=== PATIENT | female | born 1965 | race Caucasian/White ===

== ENCOUNTER → 2016-05-16 | Outpatient (CLI) | payer BC ==
[~2016-05-16] MED LIST: EST1 PO; FLUO20CA35 PO; IBUP-1050 PO
== END | disposition home or self-care (01) ==
LOC: C.PAPS 10:26
PROVIDERS: ATTEND Obstetrics & Gynecology
DX: Z01.419 Encounter for gynecological examination (general) (routine) without abnormal findings (principal)

== ENCOUNTER → 2016-08-23 | Outpatient (CLI) | payer BC ==
--- NOTE | 2016-08-23 16:20 | MAMMOGRAPHY REPORT ---
BILATERAL DIGITAL SCREENING MAMMOGRAM TOMOSYNTHESIS WITH CAD: 08/23/2016 CLINICAL HISTORY: Routine screening. Patient has no complaints. TECHNIQUE: Breast tomosynthesis in addition to standard 2D mammography was performed. Current study was also evaluated with a Computer Aided Detection (CAD) system. COMPARISON: Comparison is made to exams dated: 08/19/2015 mammogram, 08/17/2014 mammogram, 07/02/2013 ma mmogram, 03/13/2012 mammogram - [facility], and 08/19/2008. BREAST COMPOSITION: There are scattered areas of fibroglandular density in both breasts. FINDINGS: No suspicious spiculated or irregular mass, architectural distortion or cluster of new, sheriff spicious microcalcifications is seen. There is a stable circumscribed oval 7 mm mass in the upper ou ter posterior left breast, most likely an intramammary lymph node. IMPRESSION: ACR BI-RADS CATEGORY 1: NEGATIVE There is no mammographic evidence of malignancy. A 1 year screening mammogram is recommended. The pa tient will receive written notification of the results. Approximately 10% of breast cancers are not detected with mammography. A negative mammographic report should not delay biopsy if a clinically suggestive mass is present. Conchita Petty M.D. ay/:08/23/2016 13:50:19 Electronic Gluer: Fabiola TY)(Catherine)(BD), [facility] letter sent: Normal 1/2 BI-RADS Code: ACR BI-RADS Category 1: Negative
== END | disposition home or self-care (01) ==
LOC: C.MAMM 08:30
PROVIDERS: ATTEND Obstetrics & Gynecology
DX: Z12.31 Encounter for screening mammogram for malignant neoplasm of breast (principal)

== ENCOUNTER → 2016-12-31 | Outpatient (CLI) | payer BC ==
--- NOTE | 2016-12-31 14:15 | DIAGNOSTIC IMAGING REPORT ---
R KNEE 4 OR MORE CLINICAL HISTORY: RIGHT KNEE PAIN COMPARISON: None. DISCUSSION: There is a suprapatellar joint effusion. No acute fractures or dislocations are visualized. There are no erosive or destructive changes. IMPRESSION: Joint effusion. No fractures identified. Electronically signed by: Clinton Fontaine M.D. 12/31/2016 2:14 PM Dictated Date/Time: 12/31/2016 2:13 PM
== END | disposition home or self-care (01) ==
LOC: C.RDSM 09:49
PROVIDERS: ATTEND Family Medicine
DX: M25.561 Pain in right knee (principal); M25.461 Effusion, right knee

== ENCOUNTER → 2017-01-07 | Outpatient (CLI) | payer BC ==
--- NOTE | 2017-01-07 16:12 | DIAGNOSTIC IMAGING REPORT ---
MRI THE RIGHT KNEE NO CONTRAST CLINICAL HISTORY: RIGHT KNEE PAIN, KNEE INJURY, MENISCUS TEAR COMPARISON STUDY: Conventional radiographic study dated 12/31/2016 FINDINGS: Imaging was performed in sagittal, coronal, and axial planes. There is a moderate suprapatellar joint effusion. There are no areas of marrow edema to indicate occult fracture or bone bruise. The quadriceps and patellar tendons appear intact. The anterior and posterior cruciate ligaments appear intact. The medial and lateral collateral ligaments appear intact. No tears a lateral meniscus are visualized. Although not well visualized on sagittal images, coronal images suggest the presence of a small bucket-handle tear of the medial meniscus.. The patellar retinacular structures appear intact. IMPRESSION: 1. Moderate suprapatellar joint effusion 2. Probable bucket-handle tear of the medial meniscus Electronically signed by: Clinton Fontaine M.D. 01/07/2017 4:11 PM Dictated Date/Time: 01/07/2017 4:05 PM
== END | disposition home or self-care (01) ==
LOC: C.MRIBC 14:50
PROVIDERS: ATTEND Family Medicine
DX: M25.561 Pain in right knee (principal); M25.461 Effusion, right knee

== ENCOUNTER → 2017-01-08 | Outpatient (CLI) | payer BC | END | disposition home or self-care (01) | LOC: C.RDSM 08:46 | PROVIDERS: ATTEND Orthopaedic Surgery | DX: M79.604 Pain in right leg (principal) ==

== ENCOUNTER → 2017-01-08 | Outpatient (CLI) | payer BC ==
[2017-01-08 12:12] LABS: SYNOVIAL FLUID APPEARANCE CLOUDY; SYNOVIAL FLUID COLOR YELLOW; SYNOVIAL FLUID MONONUC RELAT 96.2 %; SYNOVIAL FLUID POLYNUC RELAT 3.8 %
== END | disposition home or self-care (01) ==
LOC: C.LABSPEC 10:56
PROVIDERS: ATTEND Orthopaedic Surgery
DX: M25.461 Effusion, right knee (principal); E88.89 Other specified metabolic disorders

== ENCOUNTER → 2017-01-31 | Outpatient (CLI) | payer BC ==
[~2017-01-31] MED LIST changes: -FLUO20CA35 PO; +FLUO40CA8 PO; -IBUP-1050 PO; +MULT-506 PO
[2017-01-31 10:58] LABS: HEMATOCRIT 40.7 % (37-47); MEAN CELL VOLUME 88.9 fL (80-100); MEAN CORPUSCULAR HEMOGLOBIN 30.6 pg (25-34); MEAN CORPUSCULAR HGB CONC 34.4 g/dl (32-36); MEAN PLATELET VOLUME 9.4 fL (7.4-10.4); PLATELET COUNT 216 K/uL (130-400); RED BLOOD COUNT 4.58 M/uL (4.2-5.4); WHITE BLOOD COUNT 4.67 K/uL (4.8-10.8)
[2017-01-31 11:25] LABS: BLOOD UREA NITROGEN 14 mg/dl (7-18); BUN/CREATININE RATIO 20.2 (10-20); CALCIUM 8.8 mg/dl (8.5-10.1); CARBON DIOXIDE 27 mmol/L (21-32); CHLORIDE 105 mmol/L (98-107); CREATININE 0.71 mg/dl (0.60-1.20); GLUCOSE 93 mg/dl (70-99); POTASSIUM 3.8 mmol/L (3.5-5.1); SODIUM 137 mmol/L (136-145)
== END | disposition home or self-care (01) ==
LOC: C.CPL 10:10
PROVIDERS: ATTEND Physician Assistant
DX: Z01.818 Encounter for other preprocedural examination (principal); S83.241A Other tear of medial meniscus, current injury, right knee, initial encounter; X58.XXXA Exposure to other specified factors, initial encounter

== ENCOUNTER → 2017-02-04 | Day surgery (SDC) | payer BC ==
[2017-01-30 08:42] VITALS: Ht 152.4 cm; Wt 70.9 kg
[~2017-02-04] VITALS: Ht 152.4 cm; Wt 70.9 kg
[~2017-02-04] MED LIST changes: +ATROPINE SULFATE 0.1 MG/ML 5ML SYR IV PRN; +CLINDAMYCIN PHOS 150 MG/ML 2 ML VIAL IV SCH; +DEXAMETHASONE SOD INJ 4 MG/ML VIAL ONE; +EpHEDrine SULFATE INJ 50 MG/ML AMP IV PRN; +EpINEphrine HCL INJ 1 MG/ML 5ML SYRINGE ONE; +FENTANYL CITRATE INJ 50 MCG/1 ML 2 ML VIAL ONE; +LACTATED RINGER'S 1000ML 1,000 ML IV SCH; +LIDO 2%/EPINEPHRINE 1:100000 20 ML VIAL INFIL ONE; +LIDOCAINE HCL 2% 2 ML VIAL (20MG/ML) ONE; +MIDAZOLAM HCL 1 MG/ML 2ML VIAL ONE; +NURSING VERBAL MED ORDER ONE; +ONDANSETRON INJ 2 MG/ML 2 ML VIAL IV PRN; +ONDANSETRON INJ 2 MG/ML 2 ML VIAL ONE; +OXYCODONE/ACETAMINOPHEN 5-325 TAB PO PRN; +PROPOFOL IV EMULSION 10 MG/ML 20 ML VIAL IV ONE; +ROPIVACAINE 0.5% 5 MG/ML 30 ML VIAL ONE
--- NOTE | 2017-02-04 07:34 | History & Physical Bridge - [place] ---
H&P Re-Evaluation Bridge Note: I have examined the patient, reviewed the History & Physical and in the interval since the performance of the History & Physical I have noted the following changes of clinical significance: No changes noted
--- NOTE | 2017-02-04 09:32 | [facility] Post Operative Brief Note ---
Immediate Operative Summary Operative Date Feb 04, 2017. Pre-Operative Diagnosis Right Knee Medial Meniscus Tear, Synovitis Post-Operative Diagnosis Same Procedure(s) Performed Right Knee Arthroscopy, Partial Medial Meniscectomy, Synovectomy Surgeon Dr. Madison Gum Puller Surgeon(s) Dr. Melendez Estimated Blood Loss Minimal Findings Flap tear posterior horn medial meniscus trimmed back to stable margin. Infrapatellar and Suprapatellar plicae resected. Synovitis resected anterior knee Fluids (cc crystalloids) 1000 Specimens None Drains None Anesthesia General with local Complication(s) None Disposition Recovery Room / PACU
--- NOTE | 2017-02-04 09:43 | Discharge Instructions-SurgCtr ---
Discharge Instructions Date of Service Feb 04, 2017. Visit Reason for Visit: Right Knee Medial Meniscus Tear, Synovitis Discharge Discharge Diagnosis / Problem: s/p R knee arthroscopy, partial medial meniscectomy, synovectomy Discharge Goals Goal(s): Decrease discomfort, Improve function, Increase independence Activity Recommendations Activity Limitations: per Instructions/Follow-up section Lifting Limitations: none Exercise/Sports Limitations: none May Resume Sexual Activity: after follow-up appointment Shower/Bathe: tomorrow Driving or Machine Use: Weightbearing Status: Right toe touch Anesthesia . Post Anesthesia Instructions: If you have had General Anesthesia or IV Sedation: * Do not drive today. * Resume driving when surgeon permits. * Do not make important decisions or sign legal documents today. * Call surgeon for: 1. Temperature elevations greater than 101 degrees F. 2. Uncontrollable pain. 3. Excessive bleeding. 4. Persistent nausea and vomiting. 5. Medication intolerance (nausea, vomiting or rash). * For nausea and vomiting use only clear liquids such as: tea, soda, bouillon until nausea subsides, then gradually increase diet as tolerated. * If you have any concerns or questions, call your surgeon's office. If physician is unavailable and it is an emergency, call 911 or go to the nearest emergency room. . Instructions / Follow-Up Instructions / Follow-Up Post-operative Instructions Dear Patient and Family/Friends, Before you are discharged from the hospital, it is important to know what to expect when you get home after surgery. To that end, we have created this sheet of discharge instructions which covers many commonly asked questions. Make sure you go through this sheet in its entirety with your nurse before you are discharged. Please note that we will go over the specifics of your surgery and recovery when you return for your first post-operative visit. Sincerely, Dr. Madison Pain Expect to be in a fair amount of pain after surgery. Remember, our goal is not to eliminate your pain, but to make it tolerable. It is a good idea to stay ahead of your pain by taking the medications you were prescribed once you get home. Typically, the pain starts improving 3-7 days after surgery. You should start weaning off the narcotic pain medication (oxycodone, hydrocodone, hydromorphone, morphine) as soon as your pain improves. Please call our office if your pain is not adequately controlled. Ice Ice your operative site at least 5 times a day for 15-30 minutes at a time. Make sure you have a thin cloth between the ice or cooling unit and your skin to prevent mccoy bite. This is especially important if you received a nerve block. Continue icing your operative site for the first 5-7 days after surgery , then as needed. Diet/Nausea/Vomiting Start by drinking clear liquids and eating crackers. If you can tolerate this, then you may resume your normal diet. If you feel nauseated or vomit, take Zofran/ondansetron (if prescribed). Please call our office if you have intractable nausea or vomiting, or, if after hours, you may go to the Emergency Room for help. Constipation Constipation is a common side effect of narcotic pain medication. If you have not had a bowel movement within 2 days after surgery, we recommend purchasing an over the counter laxative such as Milk of Magnesia, Dulcolax, or Miralax from a local pharmacy, and taking it as instructed. Call our clinic if any questions. Slings and Braces If you were placed in a sling or brace, it must be worn at all times, including sleep. You may remove your sling or brace for physical therapy, home exercises , and showering. The length of time you will be in your brace and range of motion restrictions depends on what surgery you had; these details will be reviewed at your first post-operative appointment. Nerve block The anesthesia team sometimes places a nerve block to help with post-operative pain control. This results in significant numbness and inability to move the extremity. The nerve block usually wears off in 8-12 hours, but sometimes can last up to 24 hours. Please call our office if you are still unable to move your extremity after 24 hours, unless you received a pain pump to take home. Nerve blocks typically wear off quickly, so start taking pain medication as soon as you start feeling soreness near your surgical site. Weight bearing and Range of Motion. Do not bear any weight through your operative extremity immediately after surgery. If you had upper extremity surgery, do not lift anything with that arm. If you are in a knee brace, keep it locked in place until your follow-up. We will discuss your weight bearing, range of motion, and lifting restrictions in detail at your first post-operative appointment. Continuous Passive Motion (CPM) Machine If you were prescribed a CPM machine, it will start after your first post- operative appointment, at which time we will give you instructions on the range of motion settings and duration of treatment Physical therapy You will be given a prescription for physical therapy or occupational therapy at your first post-operative appointment. Typically, patients start therapy within 1 week of surgery Wound care and showering We will inspect your wound at your first post-operative visit, and may do a dressing change at that time. Most patients will be in a water-proof dressing that is removed 14 days after surgery. It is normal to see some dried blood on the dressing. Do not remove your dressing, paper strips or sutures yourself unless you are given permission. Showering is allowed the day after surgery. Do not scrub or remove any dressings. The wound should not be submerged underwater (i.e. in a bathtub or pool) until 4 weeks after surgery VEGA stockings If you were given white stockings, these are to be worn at all times except to shower (on both legs) for the first 2 weeks after surgery. Driving You may not drive while taking narcotic pain medication or while in a cast, splint, sling or brace. You, the patient, need to make the final determination about when you are safe to drive, however, the earliest you may consider driving after surgery is below: Hand/Wrist/Elbow Surgery: 3 days Shoulder Surgery: 2 weeks Hip,/Knee/Ankle Surgery: 4 weeks Fracture repair: 6 weeks Return to Work Your return to work depends on what surgery was done and what type of work you do. Please bring any paperwork your employer needs completed to your first post -operative visit. Also, bring a description of your job duties, as this helps us to understand what risks you may face at work. Travel Avoid long distance travel (greater than 1 hour) in airplanes and cars for the first 6 weeks after surgery. If you must travel, you need to have a Doppler ultrasound done before you travel to rule out a blood clot in your legs. Follow-up You should have a follow-up appointment already scheduled 1-2 days after surgery. If not, please contact our office to make this appointment before you leave the hospital. When to call the office It is normal to have swelling and bruising in the limb that was operated on. This will improve with time. It is also normal to have fevers for the first 2 days after surgery. Reasons you should call your doctor include: Uncontrolled pain; Nausea, vomiting, or constipation that does not improve with medication; Fevers over 101.5, chills, sweats; Drainage or bleeding from the wound; Foul odor; Spreading areas of redness; Any other concerns Diet Recommendations Home Diet: resume previous diet Procedures Procedures Performed: Right Knee Arthroscopy, Partial Medial Meniscectomy, Synovectomy Pending Studies Studies pending at discharge: no Medical Emergencies . Who to Call and When: Medical Emergencies: If at any time you feel your situation is an emergency, please call 911 immediately. . Non-Emergent Contact Non-Emergency issues call your: Primary Care Provider Call Non-Emergent contact if: you have a fever, temperature is above 101.5, your pain is not controlled, wound has increased drainage, wound has increased redness, wound has increased pain . . "Provider Documentation" section prepared by Dorian Madison. . [place] Drug Monitoring Program Search Results: no issues identified
--- NOTE | 2017-02-04 09:46 | Discharge Summary ---
Orthopedic Discharge Summary Admission Date/Reason Right Knee Medial Meniscus Tear, Synovitis. Discharge Date/Disposition Feb 04, 2017 Home Diagnosis Principal Diagnosis: Right Knee Medial Meniscus Tear, Synovitis. Procedure(s) Performed R knee scope, partial medial meniscectomy, synovectomy Medication Reconciliation oxycodone, celebrex, tylenol, aspirin Admission Physical Exam As per Admitting History & Physical. Discharge Instructions Please refer to the electronic Patient Visit Report (Discharge Instructions) for additional information.
[2017-02-04] MEDS: FENTANYL CITRATE INJ 50 MCG/1 ML 2 ML VIAL IV PRN ×4 (09:56→10:37)
[2017-02-04 11:03] VITALS: TEMP 36.7
--- NOTE | 2017-02-04 11:42 | Anesthesia Progress Nt - [facility] ---
Anesthesia Post Op Note Date & Time Feb 04, 2017 at 11:42 Vital Signs Pain Intensity: 3.0 Vital Signs Past 12 Hours Date Time Temp Pulse Resp B/P (MAP) Pulse Ox O2 Delivery O2 Flow Rate FiO2 02/04/17 11:03 36.7 64 16 116/77 (90) 95 Room Air 02/04/17 11:01 115/72 02/04/17 10:58 68 6 02/04/17 10:58 69 6 100 02/04/17 10:57 70 10 02/04/17 10:57 68 10 90 02/04/17 10:56 114/72 02/04/17 10:52 76 12 02/04/17 10:52 75 12 91 02/04/17 10:52 36.5 74 14 112/79 95 Room Air 02/04/17 10:51 112/79 02/04/17 10:47 77 10 02/04/17 10:47 77 10 100 02/04/17 10:46 116/72 02/04/17 10:42 70 10 100 02/04/17 10:42 70 10 02/04/17 10:41 116/71 02/04/17 10:37 76 15 100 02/04/17 10:37 77 15 02/04/17 10:36 125/66 02/04/17 10:32 75 14 99 02/04/17 10:32 75 14 02/04/17 10:31 122/73 02/04/17 10:27 77 12 02/04/17 10:27 76 12 100 02/04/17 10:26 118/69 02/04/17 10:22 79 12 02/04/17 10:22 79 12 100 02/04/17 10:21 117/68 02/04/17 10:17 77 14 02/04/17 10:17 76 14 100 02/04/17 10:16 121/73 02/04/17 10:12 79 9 100 17 10:12 79 9 02/04/17 10:11 122/67 17 10:07 78 12 02/04/17 10:07 77 12 100 18/17 10:06 127/76 02/04/17 10:02 77 15 100 02/04/17 10:02 77 15 02/04/17 10:01 125/76 02/04/17 09:57 83 14 100 02/04/17 09:57 81 14 02/04/17 09:56 130/80 02/04/17 09:52 80 18 02/04/17 09:52 80 18 100 02/04/17 09:51 130/86 02/04/17 09:48 134/99 02/04/17 09:47 36.2 87 12 134/99 95 Mask 6 02/04/17 07:13 36.7 70 22 108/88 (95) 93 Room Air Notes Mental Status: alert / awake / arousable, participated in evaluation Pt Amnestic to Procedure: Yes Nausea / Vomiting: adequately controlled Pain: adequately controlled Airway Patency, RR, SpO2: stable & adequate BP & HR: stable & adequate Hydration State: stable & adequate Anesthetic Complications: no major complications apparent
[2017-02-04 11:44] VITALS: BP 131/83; PULSE 84; O2SAT 95
--- NOTE | 2017-02-04 11:58 | OPERATIVE REPORT ---
DATE OF OPERATION: 02/04/2017 PREOPERATIVE DIAGNOSES: Right knee synovitis and right knee medial meniscus tear. POSTOPERATIVE DIAGNOSES: Same. OPERATIONS PERFORMED: 1. Right knee major synovectomy. 2. Right knee partial medial meniscectomy. SURGEON: Dorian Madison MD PRESSROOM FOREMAN: Jeremy Melendez. IV FLUIDS: 1000 mL crystalloid. ESTIMATED BLOOD LOSS: Minimal. IMPLANTS: None. SPECIMENS: None. COMPLICATIONS: None. INDICATIONS: Ms. Ashley is a 51-year-old female who has had anterior and medial sided knee pain for the last several months. We have attempted conservative management including an aspiration and corticosteroid injection in her knee, activity modification and others. Unfortunately, this failed to relieve her symptoms. MRI shows a displaced medial meniscus tear. Also, shows a large infrapatellar plica. I spoke with her about the risks and benefits of surgery, alternatives to surgery and expected outcomes. After reviewing all, these she elected to proceed with surgery. All questions were answered. Informed consent was signed. OPERATIVE FINDINGS: 1. The undersurface of the patella was normal. 2. Trochlea was normal. 3. Medial and lateral gutters were free of any loose bodies. 4. A suprapatellar pouch showed an anterior to posterior thin suprapatellar plica. 5. 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 There was a flap tear involving the posterior horn of the medial meniscus that extended into the root. 6. The notch showed a large infrapatellar plica with anterior synovitis. 7. The lateral compartment showed a grade 1 chondromalacia of the lateral femoral condyle and lateral tibial plateau with an intact lateral meniscus. The medial meniscus was trimmed back to a stable margin. The suprapatellar and infrapatellar plica were resected as well as the synovitis in the front of her knee. DESCRIPTION OF THE OPERATION: The patient was identified in the preoperative holding area where surgical site was marked. She was brought back to main operating room. She was placed on the operating table and general anesthesia was administered. All bony prominences were padded. Perioperative antibiotics were administered. She was prepped and draped in the normal sterile fashion. Prior to incision, a multidisciplinary timeout was called. All in the room were in agreement. We began by injecting the portal sites with 2% lidocaine with epinephrine, a total of 4 mL. We then created our anterolateral portal. A medial working portal was created under direct visualization. A diagnostic arthroscopy was performed revealing the above findings. Once the diagnostic arthroscopy was complete, the shaver and a 50-degree cautery wand were used to resect the infrapatellar plica and the anterior impinging synovitis. We then explored her medial meniscus tear. This was clearly a nonrepairable tear. A combination of biters and catrachita were used to resect the meniscus tear back to stable margin. The meniscal biter was used to resect the suprapatellar plica band. We then explored the gutters and the entirety of the knee once again to ensure that there were no fragments floating around through the knee, which had not been removed. Once this was confirmed, the arthroscope was removed from the knee. Her portals were closed with inverted 3-0 nylon sutures followed by Steri-Strips, 2 x 2's and Tegaderms. Of note, we did inject the portal sites in the knee with a total of 30 mL of 0.5% ropivacaine without epinephrine at the conclusion of the case for postoperative pain control. She was awoken from anesthesia and transferred to the recovery room in stable condition. POSTOPERATIVE COURSE: The patient will be discharged home from the recovery room. She will be weightbearing as tolerated. She will follow the knee arthroscopy, debridement, physical therapy protocol. She will return to my clinic tomorrow to review her physical therapy protocol and restrictions and for a wound check. She will be on aspirin for DVT prophylaxis. I attest to the content of the Intraoperative Record and any orders documented therein. Any exception s are noted below.
== END | disposition home or self-care (01) ==
LOC: X.SURG 06:58
PROVIDERS: ATTEND Orthopaedic Surgery
DX: M65.9 Synovitis and tenosynovitis, unspecified (principal); M23.231 Derangement of other medial meniscus due to old tear or injury, right knee; F32.9 Major depressive disorder, single episode, unspecified; G43.909 Migraine, unspecified, not intractable, without status migrainosus; Z79.899 Other long term (current) drug therapy; F41.9 Anxiety disorder, unspecified

== ENCOUNTER → 2017-05-30 | Outpatient (CLI) | payer OTHER ==
[~2017-05-30] MED LIST changes: -ATROPINE SULFATE 0.1 MG/ML 5ML SYR IV PRN; -CLINDAMYCIN PHOS 150 MG/ML 2 ML VIAL IV SCH; -DEXAMETHASONE SOD INJ 4 MG/ML VIAL ONE; -EpHEDrine SULFATE INJ 50 MG/ML AMP IV PRN; -EpINEphrine HCL INJ 1 MG/ML 5ML SYRINGE ONE; -FENTANYL CITRATE INJ 50 MCG/1 ML 2 ML VIAL ONE; -LACTATED RINGER'S 1000ML 1,000 ML IV SCH; -LIDO 2%/EPINEPHRINE 1:100000 20 ML VIAL INFIL ONE; -LIDOCAINE HCL 2% 2 ML VIAL (20MG/ML) ONE; -MIDAZOLAM HCL 1 MG/ML 2ML VIAL ONE; -NURSING VERBAL MED ORDER ONE; -ONDANSETRON INJ 2 MG/ML 2 ML VIAL IV PRN; -ONDANSETRON INJ 2 MG/ML 2 ML VIAL ONE; -OXYCODONE/ACETAMINOPHEN 5-325 TAB PO PRN; -PROPOFOL IV EMULSION 10 MG/ML 20 ML VIAL IV ONE; -ROPIVACAINE 0.5% 5 MG/ML 30 ML VIAL ONE
== END | disposition home or self-care (01) ==
LOC: C.PAPS 12:16
PROVIDERS: ATTEND Obstetrics & Gynecology
DX: Z12.4 Encounter for screening for malignant neoplasm of cervix (principal)